=== PATIENT | male | born 1955 | race Caucasian/White ===

== ENCOUNTER 2021-05-30 09:53 | Day surgery (SDC) | payer MEDICARE, OTHER ==
[~2021-05-30] VITALS: Ht 172.7 cm; Wt 99.4 kg
[~2021-05-30 09:53] MED LIST: AMLO10 PO; AMLODIPINE-VAL1 EAC3; Aspir 8181 MG PO; CICLODAN6.6 ML; CYCL10 PO; Carac30 GM; DICY20 PO; Diovan320 MG; EZET10 PO; FAMO10 PO; FINA5; FINA5 PO; GUAI600T33 PO; HYDACE5 PO; HYDCHL12.5 PO; HYDCHL25 PO; LO-DOSE ASPIRIN81 MG; METF500 PO; MOXI400 PO; NEBI5; NEBI5 PO; OMEPRAZOLE20 MG; ROSU10TA PO; ROSU5; SIME80CH PO; SIMV20 PO; TAMS.4ER PO; TRAN2 PO; TRAVER4240 PO
--- NOTE | 2021-05-30 10:11 | NUR ---
05/30/21 [place] Cami Malloy 1 TRY RIGHT HAND MISS
--- NOTE | 2021-05-30 11:45 | NUR ---
05/30/21 1145 JUICE AGOSTO PT WAS STRONLY ADVICED TO FOLLOW UP WITH PCP ABOUT HAVING A SLEEP STUDY SCHEDULED DUE TO POSSIBLE CHASE DIAGNOSIS PER DR MIDDLETON AND DR NEWTON.
== END 2021-05-30 11:25 | disposition home or self-care (01) ==
LOC: ORSCSDS 09:53
PROVIDERS: Internal Medicine Gastroenterology
PROC: 0DB68ZX Excision of Stomach, Via Natural or Artificial Opening Endoscopic, Diagnostic (ICD-10-PCS; principal; 2021-05-30 11:15)
PROC: 0DB48ZX Excision of Esophagogastric Junction, Via Natural or Artificial Opening Endoscopic, Diagnostic (ICD-10-PCS; principal; 2021-05-30 11:15)
DX: K21.9 Gastro-esophageal reflux disease without esophagitis (principal); K22.70 Barrett's esophagus without dysplasia; K29.70 Gastritis, unspecified, without bleeding; K22.2 Esophageal obstruction; K44.9 Diaphragmatic hernia without obstruction or gangrene; I10 Essential (primary) hypertension; R73.03 Prediabetes; Q61.3 Polycystic kidney, unspecified; E66.9 Obesity, unspecified; Z68.33 Body mass index [BMI] 33.0-33.9, adult; Z79.82 Long term (current) use of aspirin; Z79.899 Other long term (current) drug therapy; Z79.84 Long term (current) use of oral hypoglycemic drugs
CPT/HCPCS: 82947; 88305; 88342; J2704; J7120

== ENCOUNTER 2022-03-07 15:29 | Inpatient (IN) | payer MEDICARE, OTHER ==
[~2022-03-07 15:29] MED LIST changes: -AMLO10 PO; +AMLO5 PO; +Bystolic20 MG PO; -Diovan320 MG; +Diovan320 MG PO; -NEBI5 PO
[2022-03-07] MEDS ORDERED: OMEP20ER PO ×2 (16:36→22:51)
[2022-03-07] MEDS ORDERED: Cipro500 MG PO (16:36)
[2022-03-07] MEDS ORDERED: FINA5 PO (22:46)
[2022-03-07] MEDS ORDERED: LINZESS145 MCG PO (22:50)
[2022-03-10] MEDS ORDERED: LEVFLO500 PO (12:36)
[2022-03-10] MEDS ORDERED: LACT PO (12:37)
[2022-03-10] MEDS ORDERED: OXYC5 PO (12:37)
[2022-03-10] MEDS ORDERED: ONDA4ODT MM (12:40)
== END 2022-03-10 15:14 | disposition home or self-care (01) | DRG 392 ==
DX: K57.20 Diverticulitis of large intestine with perforation and abscess without bleeding (principal); Q61.3 Polycystic kidney, unspecified; N13.30 Unspecified hydronephrosis; E87.1 Hypo-osmolality and hyponatremia; Q44.6 Cystic disease of liver; D75.839 Thrombocytosis, unspecified; N40.0 Benign prostatic hyperplasia without lower urinary tract symptoms; E78.5 Hyperlipidemia, unspecified; R73.03 Prediabetes; I10 Essential (primary) hypertension; K21.9 Gastro-esophageal reflux disease without esophagitis; F12.10 Cannabis abuse, uncomplicated; D64.9 Anemia, unspecified; Z98.890 Other specified postprocedural states; Z88.8 Allergy status to other drugs, medicaments and biological substances; Z87.891 Personal history of nicotine dependence; Z79.899 Other long term (current) drug therapy; Z79.2 Long term (current) use of antibiotics; Z79.82 Long term (current) use of aspirin; Z79.84 Long term (current) use of oral hypoglycemic drugs

== ENCOUNTER 2024-01-21 09:12 | Day surgery (SDC) | payer MEDICARE, OTHER ==
[~2024-01-21] VITALS: Ht 172.7 cm; Wt 99.2 kg
[~2024-01-21 09:12] MED LIST changes: +Cipro500 MG PO; +LACT PO; +LEVFLO500 PO; +LINZESS145 MCG PO; +Lactated Ringer's 1,000 ML IV ONE; +OMEP20ER PO; +ONDA4ODT MM; +OXYC5 PO; +propofoL 40 ML IV ONE
[2024-01-21] MEDS ORDERED: NEBI10 PO (09:51)
[2024-01-21] MEDS ORDERED: Lactated Ringer's 1,000 ML IV ONE ×2 (10:09)
[2024-01-21] MEDS ORDERED: ISOSORB MONO (10:15)
[2024-01-21] MEDS ORDERED: HYDRA50 (10:15)
[2024-01-21 12:10] VITALS: BP 165/75
== END 2024-01-21 12:00 | disposition home or self-care (01) ==
LOC: ORSCSDS 09:12
PROVIDERS: Surgery
PROC: 0DBK8ZX Excision of Ascending Colon, Via Natural or Artificial Opening Endoscopic, Diagnostic (ICD-10-PCS; principal; 2024-01-21 10:30)
PROC: 0DBL8ZX Excision of Transverse Colon, Via Natural or Artificial Opening Endoscopic, Diagnostic (ICD-10-PCS; principal; 2024-01-21 10:30)
DX: Z12.11 Encounter for screening for malignant neoplasm of colon (principal); Z86.0101 Personal history of adenomatous and serrated colon polyps; D12.3 Benign neoplasm of transverse colon; K63.5 Polyp of colon; I12.9 Hypertensive chronic kidney disease with stage 1 through stage 4 chronic kidney disease, or unspecified chronic kidney disease; Q61.3 Polycystic kidney, unspecified; N18.30 Chronic kidney disease, stage 3 unspecified; K21.9 Gastro-esophageal reflux disease without esophagitis; R00.1 Bradycardia, unspecified; E78.5 Hyperlipidemia, unspecified; K57.30 Diverticulosis of large intestine without perforation or abscess without bleeding; K22.70 Barrett's esophagus without dysplasia; Z79.82 Long term (current) use of aspirin; Z79.84 Long term (current) use of oral hypoglycemic drugs; Z79.899 Other long term (current) drug therapy
CPT/HCPCS: 82947; 88305; J2704; J7120